=== PATIENT | female | born 1965 | race Two or more races ===

== ENCOUNTER 2019-10-17 20:07 | Inpatient (IN) | payer MEDICAID, OTHER ==
[~2019-10-17] VITALS: Ht 160 cm; Wt 82.1 kg
[2019-10-18] MEDS ORDERED: methylPREDNISolone SOD SUCC 125 MG/2 ML VL IM ONE (01:30)
[2019-10-18] MEDS ORDERED: methylPREDNISolone SOD SUCC 125 MG/2 ML VL ONE (01:35)
[2019-10-18] MEDS ORDERED: CHOLECALCIFEROL (VITD3) 2,000 UNIT CAP PO ONE (01:45)
[2019-10-18] MEDS ORDERED: ZINC SULFATE 220mg CAP or TAB PO ONE (01:45)
[2019-10-18] MEDS ORDERED: ASCORBIC ACID 500 MG TAB PO ONE (01:45)
[2019-10-18] MEDS ORDERED: DexAMETHasone SOD PHOS 10MG/1ML VIAL INJ IM ONE (02:30)
[2019-10-18] MEDS ORDERED: SODIUM CHLORIDE 0.9% 1,000 ML IV ONE (03:15)
[2019-10-18 03:45] LABS: Basophils # (auto) 0 10 ^3/uL (0-0.2); Basophils % (auto) 0.2 % (0.0-2.0); Eosinophils # (auto) 0 10 ^3/uL (0-0.8); Eosinophils % (auto) 0.1 % (0.0-7.0); Hematocrit 38.8 % (36.0-46.0); Hemoglobin 13.2 g/dL (12.2-16.2); Mean Corpuscular Hgb Conc. 33.9 g/dL (32.0-36.0); Mean Corpuscular Volume 82.7 fL (80.0-100.0); Monocytes # (auto) 0.4 10 ^3/uL (0-1.3); Monocytes % (auto) 5.8 % (0.0-12.0); Neutrophils # (auto) 5.1 10 ^3/uL (1.6-8.6); Neutrophils % (auto) 78.9 % (37.0-80.0); Platelet Count (auto) 247 10^3/uL (140-450); Red Cell Distribution Width 13.9 % (11.8-14.3); White Blood Cell 6.5 10^3/uL (4.4-10.8)
[2019-10-18] MEDS ORDERED: ONDANSETRON HCL 4 MG/2 ML VIAL ONE (03:50)
[2019-10-18] MEDS ORDERED: ONDANSETRON HCL 4 MG/2 ML VIAL IV ONE (04:00)
[2019-10-18 04:03] LABS: Albumin 2.5 g/dL (3.4-5.0); BUN/Creatinine Ratio 16.7; Calcium 7.9 mg/dL (8.5-10.1); Potassium 3.4 mmol/L (3.5-5.1)
[2019-10-18 04:06] LABS: Bilirubin, Total 0.5 mg/dL (0.2-1.0); Total Protein 7.6 g/dL (6.4-8.2)
[2019-10-18 04:29] LABS: INR 0.97 (0.9-1.15); Partial Thromboplastin Time 28.7 sec (23.0-31.2)
[2019-10-18] MEDS ORDERED: ACETAMINOPHEN 325 MG TAB PO PRN (05:30)
[2019-10-18] MEDS ORDERED: MORPHINE SULF INJ 2 MG/ML SYRINGE 1ML IV PRN (05:30)
[2019-10-18] MEDS ORDERED: NITROGLYCERIN 0.4 MG SL TAB SL PRN (05:30)
[2019-10-18] MEDS ORDERED: TEMAZEPAM 15 MG CAP PO PRN (05:30)
[2019-10-18] MEDS: ALBUTEROL SULF HFA 90MCG INH 200DOSE IN SCH ×3 (07:09→21:52)
[2019-10-18 07:16] VITALS: BP 116/67
--- NOTE | 2019-10-18 08:35 | NUR ---
Telemetry admit from ER ROOSEVELT POOLE admitted to Telemetry unit after SBAR received. Patient oriented to Quin Lacey, primary RN, unit, room, bed, and unit policies regarding patient care and visiting hours. Patient now on continuous telemetry monitoring, tele box # 8 and telemetry reading on arrival to unit is . Patient placed on bedside oxygen, weighed by bedscale and encouraged to call if they need something. All questions and concerns addressed, patient verbalized understanding. Note:
[2019-10-18 08:40] VITALS: BP 139/83
[2019-10-18 09:00] VITALS: BP 139/83
[2019-10-18] MEDS: DexAMETHasone SOD PHOS 10MG/1ML VIAL INJ IV SCH (09:29)
[2019-10-18] MEDS: DOXYCYCLINE 100MG/250ML 250 ML IV SCH ×2 (09:29→21:37)
[2019-10-18] MEDS: FAMOTIDINE 20 MG TAB PO SCH ×2 (09:30→21:37)
[2019-10-18] MEDS: ZINC SULFATE 220mg CAP or TAB PO SCH (09:30)
[2019-10-18] MEDS: ASCORBIC ACID 1,000 MG TAB PO SCH (09:30)
[2019-10-18] MEDS: CHOLECALCIFEROL (VITD3) 2,000 UNIT CAP PO SCH (09:30)
[2019-10-18] MEDS: ENOXAPARIN SOD 40 MG/0.4 ML SYRINGE SC SCH (09:30)
[2019-10-18 10:29] LABS: Magnesium 2.3 mg/dL (1.6-2.6)
[2019-10-18 10:38] LABS: CRP High Sensitivity 11.5 mg/dL (< 0.3)
[2019-10-18 10:39] LABS: Urine Bacteria NONE SEEN /hpf (None Seen); Urine Blood Negative /uL (Negative); Urine Specific Gravity 1.027 (1.001-1.035); Urine WBC 1 /hpf (0 - 5)
--- NOTE | 2019-10-18 11:32 | NUR ---
A1C 11.[address] PRITCHETT CALLED [facility] AWARE OF PT BS, NEW ORDERS OBTAIN
[2019-10-18] MEDS ORDERED: INSULIN LANTUS (GLARGINE) 1 /0.01ml (100units/ml) SC ONE (11:45)
[2019-10-18] MEDS ORDERED: DEXTROSE (50%) 50ML SYRG IV PRN (11:45)
[2019-10-18] MEDS: ACCU-CHEK COMFORT CURVE STRIP VI SCH ×3 (12:12→23:48)
[2019-10-18] MEDS: InsuLIN REG 1unit/0.01ml Soln (100units/ml) SC SCH ×3 (12:14→23:50)
[2019-10-18 13:00] VITALS: BP 145/81
--- NOTE | 2019-10-18 14:00 | NUR ---
FAMILY PATIENTS DAUGHTER CALLED HER MOM TO CHECK ON HER
--- NOTE | 2019-10-18 15:55 | NUR ---
DR PRITCHETT AT BED SIDE FOLLOWING UP ON PT
[2019-10-18 17:00] VITALS: BP 129/62
--- NOTE | 2019-10-18 18:50 | NUR ---
PT CONTINUE STABLE, CONTINUE MONITORING
--- NOTE | 2019-10-18 20:15 | NUR ---
open note assumed care of pt. upon entering room pt awake alert and oriented x4. pt on 3L nc no distress noted or expressed. pt denies any pain. pt oriented to this nurse. pt updated on plan of care. pt bed locked, low and 2x rails up. pt has bedside commode and this nurse encouraged pt to call as needed, as well as to assist with use of bedside commode since one of pt complaint was weakness. pt agreed. pt call light in reach. this nurse to round q1hr and prn.
[2019-10-18 22:00] VITALS: BP_SYST 105; BP_SYST 128; BP_DIAS 58; BP_DIAS 75
[2019-10-19 05:00] VITALS: BP 130/60
[2019-10-19] MEDS: ACCU-CHEK COMFORT CURVE STRIP VI SCH ×3 (06:11→18:09)
[2019-10-19] MEDS: InsuLIN REG 1unit/0.01ml Soln (100units/ml) SC SCH ×3 (06:13→17:26)
[2019-10-19] MEDS: INSULIN LANTUS (GLARGINE) 1 /0.01ml (100units/ml) SC SCH (06:16)
[2019-10-19] MEDS: ONDANSETRON HCL 4 MG/2 ML VIAL IV PRN ×2 (06:21→12:08)
[2019-10-19] MEDS: ALBUTEROL SULF HFA 90MCG INH 200DOSE IN SCH ×3 (06:43→21:17)
[2019-10-19 07:15] LABS: Basophils # (auto) 0 10 ^3/uL (0-0.2); Basophils % (auto) 0.1 % (0.0-2.0); Eosinophils # (auto) 0 10 ^3/uL (0-0.8); Hemoglobin 11.6 g/dL (12.2-16.2); Lymphocytes # (auto) 1.1 10 ^3/uL (0.4-5.4); Lymphocytes % (auto) 12.7 % (10.0-50.0); Mean Corpuscular Hemoglobin 27.6 pg (28.0-32.0); Mean Corpuscular Hgb Conc. 33.2 g/dL (32.0-36.0); Mean Corpuscular Volume 82.9 fL (80.0-100.0); Monocytes # (auto) 0.5 10 ^3/uL (0-1.3); Monocytes % (auto) 6.1 % (0.0-12.0); Neutrophils # (auto) 6.9 10 ^3/uL (1.6-8.6); Neutrophils % (auto) 81.1 % (37.0-80.0); Platelet Count (auto) 291 10^3/uL (140-450); Red Blood Cells 4.22 10^6/uL (4.0-5.20); White Blood Cell 8.5 10^3/uL (4.4-10.8)
[2019-10-19 07:36] LABS: Potassium 3.5 mmol/L (3.5-5.1)
[2019-10-19 07:43] LABS: Albumin 2.1 g/dL (3.4-5.0); BUN/Creatinine Ratio 33.3; Bilirubin, Total 0.2 mg/dL (0.2-1.0); Calcium 7.7 mg/dL (8.5-10.1); Total Protein 6.6 g/dL (6.4-8.2)
--- NOTE | 2019-10-19 08:00 | NUR ---
ASSESSMENT NOTE PT IS ALERT ORIENTED X4, RESTING IN BED COMFORTABLY, NO DISTRESS NOTED, ABLE TO SELF REPOSITION AND IDENTIFY HER DEMANDS, OXYGEN 3 L NC, SAT AT 94%, PAIN 0/10 AT THIS TIME, NO DISTRESS NOTED, CALL LIGHT WITHIN REACH
[2019-10-19 09:06] VITALS: BP 107/59
[2019-10-19] MEDS: DOXYCYCLINE 100MG/250ML 250 ML IV SCH ×2 (10:13→22:14)
[2019-10-19] MEDS: ZINC SULFATE 220mg CAP or TAB PO SCH (10:13)
[2019-10-19] MEDS: DexAMETHasone SOD PHOS 10MG/1ML VIAL INJ IV SCH (10:13)
[2019-10-19] MEDS: FAMOTIDINE 20 MG TAB PO SCH ×2 (10:13→22:14)
[2019-10-19] MEDS: ASCORBIC ACID 1,000 MG TAB PO SCH (10:14)
[2019-10-19] MEDS: CHOLECALCIFEROL (VITD3) 2,000 UNIT CAP PO SCH (10:14)
[2019-10-19] MEDS: ENOXAPARIN SOD 40 MG/0.4 ML SYRINGE SC SCH ×2 (10:14→22:14)
[2019-10-19 13:00] VITALS: BP 126/88
[2019-10-19 16:22] VITALS: BP 125/74
--- NOTE | 2019-10-19 16:30 | NUR ---
BED BATH PT IS SITTING AT THE SIDE OF THE BED TAKING BED BATH, TOLERATED WELL, ASSISTED NEEDED
--- NOTE | 2019-10-19 17:40 | NUR ---
DR HUNT IS HERE FOLLOWING UP ON PT, WITH NEW ORDERS, DR HUNT REQUESTED DR KHAN APPROVAL, PAGE DR KHAN
--- NOTE | 2019-10-19 18:01 | NUR ---
DR KHAN CALLED BACK MADE AWARE OF DR HUNT REQUEST, SAID THAT HE ALREADY SPOKE WITH DR HUNT AND WE AR NO LONGER GIVE THIS MEDICATION, IT HAS NO BENEFIT TO IT
--- NOTE | 2019-10-19 18:15 | NUR ---
ROOM AIR SATURATION 84% 2.5 L PT SAT AT 94%
--- NOTE | 2019-10-19 18:38 | NUR ---
PT IS SITTING UP EATING DINNER, NO DISTRESS NOTED, CONTINUE MONITORING
--- NOTE | 2019-10-19 19:51 | NUR ---
open note assumed care of pt, upon entering room pt is awake, alert and oriented. pt on 3L nc no distress noted or expressed. pt denies any pain. pt oriented to this nurse, updated on plan of care. pt denies any complaint at this time. bed locked, low and 2x rails up. pt encouraged to call as needed. this nurse to round q1hr and prn.
[2019-10-19 22:00] VITALS: BP 122/60
[2019-10-19] MEDS: THIAMINE HCL 100 MG TAB PO SCH (22:14)
[2019-10-20 05:00] VITALS: BP 138/74
[2019-10-20] MEDS: ACCU-CHEK COMFORT CURVE STRIP VI SCH ×5 (06:36→23:35)
[2019-10-20] MEDS: InsuLIN REG 1unit/0.01ml Soln (100units/ml) SC SCH ×5 (06:37→23:44)
[2019-10-20] MEDS: INSULIN LANTUS (GLARGINE) 1 /0.01ml (100units/ml) SC SCH (06:37)
[2019-10-20] MEDS: ALBUTEROL SULF HFA 90MCG INH 200DOSE IN SCH ×3 (06:49→22:21)
[2019-10-20 07:05] LABS: Basophils # (auto) 0 10 ^3/uL (0-0.2); Basophils % (auto) 0.1 % (0.0-2.0); Eosinophils # (auto) 0 10 ^3/uL (0-0.8); Eosinophils % (auto) 0.2 % (0.0-7.0); Hematocrit 34.6 % (36.0-46.0); Hemoglobin 11.7 g/dL (12.2-16.2); Lymphocytes # (auto) 1.7 10 ^3/uL (0.4-5.4); Lymphocytes % (auto) 23.9 % (10.0-50.0); Mean Corpuscular Hemoglobin 28.1 pg (28.0-32.0); Mean Corpuscular Hgb Conc. 33.8 g/dL (32.0-36.0); Mean Corpuscular Volume 83.1 fL (80.0-100.0); Monocytes # (auto) 0.6 10 ^3/uL (0-1.3); Monocytes % (auto) 8.3 % (0.0-12.0); Neutrophils # (auto) 4.8 10 ^3/uL (1.6-8.6); Neutrophils % (auto) 67.5 % (37.0-80.0); Platelet Count (auto) 320 10^3/uL (140-450); Red Blood Cells 4.16 10^6/uL (4.0-5.20); Red Cell Distribution Width 13.7 % (11.8-14.3)
[2019-10-20 07:08] LABS: Potassium 3.5 mmol/L (3.5-5.1)
[2019-10-20 07:19] LABS: Albumin 2.2 g/dL (3.4-5.0); BUN/Creatinine Ratio 26.9; Bilirubin, Total 0.3 mg/dL (0.2-1.0); CRP High Sensitivity 4.92 mg/dL (< 0.3); Calcium 7.8 mg/dL (8.5-10.1); Total Protein 6.7 g/dL (6.4-8.2)
--- NOTE | 2019-10-20 08:00 | NUR ---
ASSESSMENT NOTE PT IS ALERT ORIENTED X4, RESTING IN BED COMFORTABLY, NO DISTRESS NOTED, ABLE TO SELF REPOSITION AND IDENTIFY HER DEMANDS, OXYGEN 2 L NC, SAT AT 94%, PAIN 0/10 AT THIS TIME, NO DISTRESS NOTED, CALL LIGHT WITHIN REACH
[2019-10-20 08:51] VITALS: BP 110/62
[2019-10-20] MEDS: FAMOTIDINE 20 MG TAB PO SCH ×2 (10:13→21:53)
[2019-10-20] MEDS: DOXYCYCLINE 100MG/250ML 250 ML IV SCH ×2 (10:13→21:52)
[2019-10-20] MEDS: DexAMETHasone SOD PHOS 10MG/1ML VIAL INJ IV SCH (10:13)
[2019-10-20] MEDS: THIAMINE HCL 100 MG TAB PO SCH ×2 (10:13→21:53)
[2019-10-20] MEDS: ZINC SULFATE 220mg CAP or TAB PO SCH (10:13)
[2019-10-20] MEDS: CHOLECALCIFEROL (VITD3) 2,000 UNIT CAP PO SCH (10:14)
[2019-10-20] MEDS: ENOXAPARIN SOD 40 MG/0.4 ML SYRINGE SC SCH ×2 (10:14→21:53)
[2019-10-20] MEDS: ASCORBIC ACID 1,000 MG TAB PO SCH (10:14)
--- NOTE | 2019-10-20 10:30 | NUR ---
PT CONTINUE COMPLYING IN USING THE INCENTIVE SPIROMETER UP TO 1500, CONTINUE MONITORING
--- NOTE | 2019-10-20 11:52 | NUR ---
DR PRITCHETT IS HERE FOLLOWING UP ON PT, AWARE THAT THE ACTEMRA NO LONGER IN USE FOR COVID 19
[2019-10-20 13:00] VITALS: BP 143/79
--- NOTE | 2019-10-20 17:00 | NUR ---
DR HUNT IS HERE FOLLOWING UP ON PT
[2019-10-20 17:03] VITALS: BP 125/70
--- NOTE | 2019-10-20 18:27 | NUR ---
PT CONTINUE STABLE, CONTINUE MONITORING.
--- NOTE | 2019-10-20 19:30 | NUR ---
Opening Shift Note Assumed care of patient, awake and alert. No S/S of distress/SOB or pain. Instructed on POC and to call for assist PRN, will continue to monitor for changes Q1hr and PRN.
[2019-10-20 21:30] VITALS: BP 119/68
[2019-10-21 06:00] VITALS: BP 144/70
[2019-10-21] MEDS: ACCU-CHEK COMFORT CURVE STRIP VI SCH ×3 (06:46→18:27)
[2019-10-21] MEDS: InsuLIN REG 1unit/0.01ml Soln (100units/ml) SC SCH ×3 (06:57→18:29)
[2019-10-21] MEDS: INSULIN LANTUS (GLARGINE) 1 /0.01ml (100units/ml) SC SCH (06:57)
[2019-10-21] MEDS: ALBUTEROL SULF HFA 90MCG INH 200DOSE IN SCH ×3 (07:58→21:41)
[2019-10-21 09:00] VITALS: BP 140/69
[2019-10-21] MEDS: THIAMINE HCL 100 MG TAB PO SCH ×2 (10:13→22:47)
[2019-10-21] MEDS: FAMOTIDINE 20 MG TAB PO SCH ×2 (10:14→22:47)
[2019-10-21] MEDS: DexAMETHasone SOD PHOS 10MG/1ML VIAL INJ IV SCH (10:14)
[2019-10-21] MEDS: ZINC SULFATE 220mg CAP or TAB PO SCH (10:14)
[2019-10-21] MEDS: CHOLECALCIFEROL (VITD3) 2,000 UNIT CAP PO SCH (10:14)
[2019-10-21] MEDS: ENOXAPARIN SOD 40 MG/0.4 ML SYRINGE SC SCH (10:14)
[2019-10-21] MEDS: ASCORBIC ACID 1,000 MG TAB PO SCH (10:14)
[2019-10-21] MEDS: DOXYCYCLINE 100MG/250ML 250 ML IV SCH ×2 (10:15→22:46)
[2019-10-21 13:00] VITALS: BP 136/87
--- NOTE | 2019-10-21 14:19 | NUR ---
Est energy needs 3323-7128 kcal (20-25kcal/kg BW 82kg) Est protein needs 52-78g (1-1.5g/kg IBW 52.3kg) Will reassess prn. Addendum: 10/21/19 at [address] Amended: Links added.
[2019-10-21 15:39] VITALS: BP 136/87
[2019-10-21 17:00] VITALS: BP 118/71
--- NOTE | 2019-10-21 19:26 | NUR ---
Opening Shift Note Assumed care of patient after receiving report from Fani. Patient is awake and alert with no S/S of distress/SOB or pain. Call light within reach, bed in lowest locked position and HOB semi fowlers. Instructed on POC and to call for assist PRN, will continue to monitor for changes Q1hr and PRN.
[2019-10-21 22:00] VITALS: BP 130/71
[2019-10-21] MEDS: ENOXAPARIN SOD 80 MG/0.8ML SYRINGE SC SCH (22:46)
[2019-10-22] MEDS: ACCU-CHEK COMFORT CURVE STRIP VI SCH ×4 (00:01→18:07)
[2019-10-22] MEDS: InsuLIN REG 1unit/0.01ml Soln (100units/ml) SC SCH ×4 (00:12→18:24)
[2019-10-22 05:00] VITALS: BP 89/53
[2019-10-22] MEDS: INSULIN LANTUS (GLARGINE) 1 /0.01ml (100units/ml) SC SCH (06:58)
[2019-10-22 08:15] LABS: Basophils # (auto) 0 10 ^3/uL (0-0.2); Basophils % (auto) 0.3 % (0.0-2.0); Eosinophils # (auto) 0.1 10 ^3/uL (0-0.8); Eosinophils % (auto) 1.1 % (0.0-7.0); Hematocrit 36.4 % (36.0-46.0); Hemoglobin 12.2 g/dL (12.2-16.2); Lymphocytes # (auto) 1.8 10 ^3/uL (0.4-5.4); Lymphocytes % (auto) 21.8 % (10.0-50.0); Mean Corpuscular Hemoglobin 27.7 pg (28.0-32.0); Mean Corpuscular Hgb Conc. 33.6 g/dL (32.0-36.0); Mean Corpuscular Volume 82.4 fL (80.0-100.0); Monocytes # (auto) 0.6 10 ^3/uL (0-1.3); Monocytes % (auto) 7.6 % (0.0-12.0); Neutrophils # (auto) 5.8 10 ^3/uL (1.6-8.6); Neutrophils % (auto) 69.2 % (37.0-80.0); Platelet Count (auto) 375 10^3/uL (140-450); Red Blood Cells 4.42 10^6/uL (4.0-5.20); Red Cell Distribution Width 13.9 % (11.8-14.3); White Blood Cell 8.4 10^3/uL (4.4-10.8)
[2019-10-22 08:39] LABS: Potassium 3.5 mmol/L (3.5-5.1)
[2019-10-22 08:52] LABS: Albumin 2.3 g/dL (3.4-5.0); BUN/Creatinine Ratio 22.2; Bilirubin, Total 0.4 mg/dL (0.2-1.0); CRP High Sensitivity 2.39 mg/dL (< 0.3); Calcium 8.1 mg/dL (8.5-10.1); Total Protein 6.9 g/dL (6.4-8.2)
[2019-10-22 09:00] VITALS: BP 131/77
[2019-10-22] MEDS: DexAMETHasone SOD PHOS 10MG/1ML VIAL INJ IV SCH (10:30)
[2019-10-22] MEDS: CHOLECALCIFEROL (VITD3) 2,000 UNIT CAP PO SCH (10:31)
[2019-10-22] MEDS: ZINC SULFATE 220mg CAP or TAB PO SCH (10:31)
[2019-10-22] MEDS: THIAMINE HCL 100 MG TAB PO SCH ×2 (10:31→22:37)
[2019-10-22] MEDS: ASCORBIC ACID 1,000 MG TAB PO SCH (10:31)
[2019-10-22] MEDS: DOXYCYCLINE 100MG/250ML 250 ML IV SCH ×2 (10:31→22:36)
[2019-10-22] MEDS: FAMOTIDINE 20 MG TAB PO SCH ×2 (10:31→22:37)
[2019-10-22] MEDS: ENOXAPARIN SOD 80 MG/0.8ML SYRINGE SC SCH ×2 (10:32→22:37)
[2019-10-22 13:00] VITALS: BP 128/74
[2019-10-22] MEDS: ALBUTEROL SULF HFA 90MCG INH 200DOSE IN SCH ×4 (14:00→21:32)
[2019-10-22 16:40] VITALS: BP 123/74
--- NOTE | 2019-10-22 19:20 | NUR ---
Opening Shift Note Assumed care of patient after receiving report. Patient is awake and alert with no S/S of distress/SOB or pain. Call light within reach, bed in lowest locked position, HOB semi fowlers. Instructed on POC and to call for assist PRN, will continue to monitor for changes Q1hr and PRN.
[2019-10-22 22:00] VITALS: BP 132/70
[2019-10-23] MEDS: ACCU-CHEK COMFORT CURVE STRIP VI SCH ×4 (00:15→18:03)
[2019-10-23] MEDS: InsuLIN REG 1unit/0.01ml Soln (100units/ml) SC SCH ×4 (00:22→18:03)
[2019-10-23 05:00] VITALS: BP 122/71
[2019-10-23] MEDS: INSULIN LANTUS (GLARGINE) 1 /0.01ml (100units/ml) SC SCH (06:42)
[2019-10-23] MEDS: ALBUTEROL SULF HFA 90MCG INH 200DOSE IN SCH ×2 (07:01→13:48)
--- NOTE | 2019-10-23 07:35 | NUR ---
OPENING NOTE ASSUME CARE OF PT. ALERT AND ORIENTED. NO S/S OF SOB/DISTRESS NOTED. BED SET TO LOWEST POSITION/LOCKED, BEDSIDE RAILS UP X2, CALL LIGHT WITHIN REACH. INSTRUCTED PT TO CALL FOR ASSISTANCE. UPDATED ON POC. WILL CONTINUE TO MONITOR Q1HR AND PRN.
[2019-10-23 09:00] VITALS: BP 129/54
[2019-10-23] MEDS: DexAMETHasone SOD PHOS 10MG/1ML VIAL INJ IV SCH (09:29)
[2019-10-23] MEDS: THIAMINE HCL 100 MG TAB PO SCH (09:29)
[2019-10-23] MEDS: ZINC SULFATE 220mg CAP or TAB PO SCH (09:30)
[2019-10-23] MEDS: ASCORBIC ACID 1,000 MG TAB PO SCH (09:30)
[2019-10-23] MEDS: CHOLECALCIFEROL (VITD3) 2,000 UNIT CAP PO SCH (09:30)
[2019-10-23] MEDS: ENOXAPARIN SOD 80 MG/0.8ML SYRINGE SC SCH (09:30)
[2019-10-23] MEDS: FAMOTIDINE 20 MG TAB PO SCH (09:30)
[2019-10-23 13:00] VITALS: BP 137/62
--- NOTE | 2019-10-23 13:24 | NUR ---
O2 SATURATION PATIENT O2 SATURATION IS 86% ON ROOM AIR ON AMBULATION.
--- NOTE | 2019-10-23 15:52 | NUR ---
ss consult Per ss consult srrange home oxygen 1L via NC. Patient is covid positive. Per [employer] caser at [facility] send to [facility] [phone]. MD order has been sent to [place]. Waiting for call back now. Addendum: 10/23/19 at 1554 by Urvashi Edouard Amended: Links added.
[2019-10-23] MEDS ORDERED: ALBUAER3 IN (16:04)
[2019-10-23] MEDS ORDERED: FAMO-12 PO (16:04)
[2019-10-23] MEDS ORDERED: DOXY-346 PO (16:04)
[2019-10-23] MEDS ORDERED: PRED20TA2 PO (16:04)
[2019-10-23] MEDS ORDERED: INSLANTI SC (16:04)
--- NOTE | 2019-10-23 16:30 | NUR ---
HOME O2 RECEIVED CALL FROM [facility] ([facility]). PER LISA THEY WILL DELIVER HOME O2 TO BEDSIDE, NO ETA WAS GIVEN. SHE WILL HAVE DRIVE CALL WITH ETA.
[2019-10-23 17:00] VITALS: BP 135/70
--- NOTE | 2019-10-23 17:10 | NUR ---
re-assessment Per Pee at [facility] they have received order and will deliver once auth is in portal. IE has been notified. Addendum: 10/23/19 at 1712 by Urvashi Edouard SS Amended: Links added.
[2019-10-23 18:10] VITALS: BP 135/70
--- NOTE | 2019-10-23 18:28 | NUR ---
Discharge instructions given to daughter and patient as ordered. Encourage to follow up with PMD and Dr. Pop as instructed. home oxygen delivered to bedside. All questions and concerns addressed. Daughter verbalized understanding. IV removed with catheter intact, pressure dressing applied. Telemetry unit returned to ICU.
--- NOTE | 2019-10-23 19:29 | NUR ---
ENDORSED CARE TO SHYANNE LEES. NURSE IS AWARE OF HOME 02 AND DISCHARGE PAPERWORK.
--- NOTE | 2019-10-23 19:30 | NUR ---
Opening Shift Note Assumed care of patient, awake, alert and oriented x4, on room air with even and unlabored respirations, no S/S of distress/SOB or pain. Patient able to ambulate independently, bed in lowest locked position, side rails up x2, and call light within reach. Instructed on POC and to call for assist PRN, will continue to monitor for changes Q1hr and PRN.
--- NOTE | 2019-10-23 20:15 | NUR ---
Discharge instructions given as ordered. Encourage to follow up with PMD as instructed. All questions and concerns addressed. Patient verbalized understanding. Medication reconciliation form completed and copy given to patient. Home medications held in Pharmacy returned to patient, and needed vaccines given. IV removed with catheter intact, pressure dressing applied. Telemetry unit returned to ICU. Patient taken to vehicle via wheelchair with all personal belongings, accompanied by staff and family member. No distress noted at time of departure.
== END 2019-10-23 20:10 | disposition home or self-care (01) | DRG 137 ==
LOC: ER 20:07 → TELE 20:08 → TELE-E-ADS 10-18 08:43
PROVIDERS: ADMIT Nurse Practitioner; ATTEND Hospitalist
DX: U07.1 COVID-19 (principal); J12.89 Other viral pneumonia; J96.01 Acute respiratory failure with hypoxia; N17.9 Acute kidney failure, unspecified; E44.0 Moderate protein-calorie malnutrition; E87.6 Hypokalemia; E11.65 Type 2 diabetes mellitus with hyperglycemia
CPT/HCPCS: 36415; 36600; 71045; 80053; 81001; 82728; 82805; 82962; 83036; 83605; 83615; 83735; 84443; 85025; 85379; 85610; 85730; 86141; 87040; 93005; 93970; 94640; 96361; 96372; 96374; G0378; J1100; J1815; J2405; J3490